=== PATIENT | female | born 2000 | race Caucasian/White ===

== ENCOUNTER 2022-09-01 08:17 | Emergency (ER) | payer SELFPAY ==
[~2022-09-01] VITALS: Ht 152.4 cm; Wt 73.0 kg
[2022-09-01 08:33] VITALS: BP 135/75
[2022-09-01] MEDS ORDERED: MUPI15CR11 TP (10:56)
== END 2022-09-01 11:55 | disposition home or self-care (01) ==
LOC: ER 08:17
DX: N76.89 Other specified inflammation of vagina and vulva (principal)
CPT/HCPCS: 99283